=== PATIENT | male | born 1940 | race African-American/Black ===

== ENCOUNTER 2016-08-20 10:19 | Emergency (ER) | payer MEDICARE, OTHER ==
[~2016-08-20] VITALS: Ht 160 cm; Wt 81.6 kg
[2016-08-20 11:09] LABS: EOSINOPHILS % (AUTO) 0.3 % (0.0-3.0); MEAN CORPUSCULAR HEMOGLOBIN 31.1 PG (27.0-31.0); MEAN CORPUSCULAR HGB CONC 32.4 G/DL (32.0-36.0); MEAN CORPUSCULAR VOLUME 96 FL (80-99); MEAN PLATELET VOLUME 7.1 FL (6.5-10.1); MONOCYTES % (AUTO) 6.3 % (1.0-10.0); NEUTROPHILS % (AUTO) 67.4 % (45.0-75.0); PLATELET COUNT 207 K/UL (150-450); RED BLOOD COUNT 4.55 M/UL (4.70-6.10); RED CELL DISTRIBUTION WIDTH 13.3 % (11.6-14.8); WHITE BLOOD COUNT 3.6 K/UL (4.8-10.8)
[2016-08-20 11:20] LABS: ALANINE AMINOTRANSFERASE 18 U/L (3-41); ALBUMIN/GLOBULIN RATIO 1.3 (1.0-2.7); ANION GAP 12 (5-15); ASPARTATE AMINO TRANSFERASE 24 U/L (5-40); CALCIUM 9.9 mg/dL (8.6-10.2); CARBON DIOXIDE 33 mEQ/L (20-30); CHLORIDE 96 mEQ/L (98-107); CREATININE 1.2 mg/dL (0.7-1.2); HEMOLYSIS 2; POTASSIUM 3.6 mEQ/L (3.4-4.9); SODIUM 141 mEQ/L (135-145); TOTAL PROTEIN 7.9 g/dL (6.6-8.7); TROPONIN I < 0.30 ng/mL (<=0.30)
[2016-08-20 11:31] LABS: CKMB 2.7 ng/mL (< 6.7); THYROID STIMULATING HORMONE 0.184 uIU/mL (0.300-4.500)
[2016-08-20] MEDS ORDERED: LOSARTAN POTASS50 MG ORAL (11:51)
[2016-08-20] MEDS ORDERED: AMIODARONE HCL400 M1 ORAL (11:56)
[2016-08-20] MEDS ORDERED: SPIRONOLACTONE1 EACH ORAL (11:56)
[2016-08-20] MEDS ORDERED: FUROSEMIDE40 MG ORAL (11:56)
[2016-08-20] MEDS ORDERED: DOK100 M2 PO (11:56)
[2016-08-20] MEDS ORDERED: CARISOPRODOL350 MG ORAL (11:56)
[2016-08-20] MEDS ORDERED: OXYCODONE-ACET1 EAC5 ORAL (11:56)
[2016-08-20] MEDS ORDERED: TEMAZEPAM30 MG ORAL (11:56)
[2016-08-20] MEDS ORDERED: METHADONE HCL5 MG PO (11:56)
[2016-08-20 12:23] VITALS: BP 159/65
--- NOTE | 2016-08-20 14:54 | Emergency Room Report ---
History of Present Illness General Chief Complaint: General Complaint Source: Patient Present Illness HPI 75-year-old M presents to ED for evaluation. States he feels tightness in his throat and cannot breathe. States he's had this problem for some time now but got worse last night. States he has a problem with his vocal cords and was scheduled to have surgery but he refused. PMD is Dr. Hurley. Denies chest pain. Denies fevers or chills. He is able to eat food without difficulty. No other aggravating relieving factors. Denies any other associated symptoms Allergies: Coded Allergies: No Known Allergies (Unverified , 08/20/16) Patient History Past Medical History: HTN, CHF Past Surgical History: none Pertinent Family History: none Social History: Denies: alcohol use, drug use, smoking Immunizations: UTD Reviewed Nursing Documentation: PMH: Agreed, PSxH: Agreed Nursing Documentation-PMH Hx Cardiac Problems: Yes - CHF Hx Hypertension: Yes Review of Systems All Other Systems: negative except mentioned in HPI Physical Exam Vital Signs Date Time Temp Pulse Resp B/P Pulse Ox O2 Delivery O2 Flow Rate FiO2 08/20/16 10:32 97.9 85 33 165/78 100 Room Air Sp02 EP Interpretation: reviewed, normal General Appearance: no apparent distress, alert, GCS 15, non-toxic Head: normocephalic, atraumatic Eyes: bilateral eye PERRL, bilateral eye normal inspection ENT: hearing grossly normal, normal pharynx, no angioedema, normal voice Neck: full range of motion, supple/symm/no masses, other - no bruit. airways patent Respiratory: chest non-tender, lungs clear, normal breath sounds, speaking full sentences Cardiovascular #1: regular rate, rhythm, no edema Cardiovascular #2: 2+ carotid (R), 2+ carotid (L), 2+ radial (R), 2+ radial (L) , 2+ dorsalis pedis (R), 2+ dorsalis pedis (L) Gastrointestinal: normal bowel sounds, non tender, soft, non-distended, no guarding, no rebound Rectal: deferred Genitourinary: normal inspection, no CVA tenderness Musculoskeletal: back normal, gait/station normal, normal range of motion, non- tender Neurologic: alert, oriented x3, responsive, motor strength/tone normal, sensory intact, speech normal Psychiatric: judgement/insight normal, memory normal, mood/affect normal, no suicidal/homicidal ideation Reflexes: 3+ bicep (R), 3+ bicep (L), 3+ tricep (R), 3+ tricep (L), 3+ knee (R) , 3+ knee (L) Skin: normal color, no rash, warm/dry, well hydrated Lymphatic: no adenopathy Medical Decision Making Diagnostic Impression: Primary Impression: Thyroid mass Additional Impression: Opioid dependence Qualified Codes: F11.29 - Opioid dependence with unspecified opioid-induced disorder ER Course Hospital Course 75-year-old M presents ED complaining of shortness of breath, difficulty breathing. History of throat mass Differential diagnoses include: ACS, CHF, obstructed airway Clinical course Patient placed on stretcher. After initial history and physical I ordered labs , EKG, chest x-ray. labs reviewed- all electrolytes normal, troponins negative, no leukocytosis, hemoglobin/hematocrit stable Chest x-ray-no cardiomegaly, no rib fracture, no pneumothorax, no acute process , thyroid mass unchanged EKG - LBBB I discussed case with PMD Dr. Hurley; this patient is well-known known to him. Patient has history of opioid dependence. Patient was recently seen by himself. His condition is chronic. Patient was told he needs surgery but continues to use drugs. I explained to the patient that airways are patent and there is no further intervention at this time unless he agrees to surgery. I. I feel this is a highly complex case requiring extensive working including EKG/Rhythm strip, Xray/CT/US, Blood/urine lab work, repeat exams while in ED, and administration of strong opiates/narcotics for pain control, admission to hospital or close patient follow up. Diagnosis - thyroid mass, opiod dependence Stable and discharged to home. Patient left prior to receiving discharge papers Labs Test 08/20/16 10:35 White Blood Count 3.6 K/UL (4.8-10.8) Red Blood Count 4.55 M/UL (4.70-6.10) Hemoglobin 14.1 G/DL (14.2-18.0) Hematocrit 43.6 % (42.0-52.0) Mean Corpuscular Volume 96 FL (80-99) Mean Corpuscular Hemoglobin 31.1 PG (27.0-31.0) Mean Corpuscular Hemoglobin Concent 32.4 G/DL (32.0-36.0) Red Cell Distribution Width 13.3 % (11.6-14.8) Platelet Count 207 K/UL (150-450) Mean Platelet Volume 7.1 FL (6.5-10.1) Neutrophils (%) (Auto) 67.4 % (45.0-75.0) Lymphocytes (%) (Auto) 25.0 % (20.0-45.0) Monocytes (%) (Auto) 6.3 % (1.0-10.0) Eosinophils (%) (Auto) 0.3 % (0.0-3.0) Basophils (%) (Auto) 1.0 % (0.0-2.0) Sodium Level 141 mEQ/L (135-145) Potassium Level 3.6 mEQ/L (3.4-4.9) Chloride Level 96 mEQ/L (98-107) Carbon Dioxide Level 33 mEQ/L (20-30) Anion Gap 12 (5-15) Blood Urea Nitrogen 23 mg/dL (7-23) Creatinine 1.2 mg/dL (0.7-1.2) Estimat Glomerular Filtration Rate mL/min (>60) Glucose Level 132 mg/dL (74-106) Calcium Level 9.9 mg/dL (8.6-10.2) Total Bilirubin 0.2 mg/dL (0.0-1.2) Aspartate Amino Transf (AST/SGOT) 24 U/L (5-40) Alanine Aminotransferase (ALT/SGPT) 18 U/L (3-41) Alkaline Phosphatase 84 U/L (40-129) Total Creatine Kinase 109 U/L (38-174) Creatine Kinase MB 2.7 ng/mL (< 6.7) Creatine Kinase MB Relative Index 2.4 Troponin I < 0.30 ng/mL (<=0.30) Total Protein 7.9 g/dL (6.6-8.7) Albumin 4.6 g/dL (3.5-5.2) Globulin 3.3 g/dL Albumin/Globulin Ratio 1.3 (1.0-2.7) Thyroid Stimulating Hormone (TSH) 0.184 uIU/mL (0.300-4.500) EKG Diagnostic Results Rate: normal Rhythm: NSR ST Segments: other - LBBB ASA given to the pt in ED: No Rhythm Strip Diag. Results EP Interpretation: yes Rhythm: NSR, no PVC's, no ectopy Chest X-Ray Diagnostic Results EP Interpretation: No Findings: no consolidation, no effusion, no pneumothorax, no acute cardiopulmonary disease, other - thyroid mass unchanged Number of Views: 1 Last Vital Signs Date Time Temp Pulse Resp B/P Pulse Ox O2 Delivery O2 Flow Rate FiO2 08/20/16 12:23 97.9 79 20 159/65 100 Room Air Status: improved Disposition: HOME, SELF-CARE Condition: Stable Patient Instructions: Thyroid Nodule NEGRITA GRACE M.D. August 20, 2016 14:54
--- NOTE | 2016-08-21 16:36 | Diagnostic Imaging Report ---
Indication: Dyspnea Comparison: 01/29/15 A single view chest radiograph was obtained. Findings: A unusual masslike opacification of the mediastinum noted with deviation of trachea to the right. The appearance is radiographically unchanged from the last examination. The finding is due to an enlarged thyroid gland as demonstrated on previous CT of the chest and neck June 30, 2011. The heart is enlarged. The lungs are clear. Bones are osteopenic. Impression: No acute cardiopulmonary abnormalities identified. No change from the last exam January 29, 2015.
== END 2016-08-20 12:25 | disposition home or self-care (01) ==
LOC: EMR 10:59
DX: E07.89 Other specified disorders of thyroid (principal); F11.20 Opioid dependence, uncomplicated; I10 Essential (primary) hypertension; I50.9 Heart failure, unspecified
CPT/HCPCS: 36415; 71010; 80053; 82550; 82553; 84443; 84484; 85025; 93005; 96374